=== PATIENT | male | born 1955 | race Caucasian/White ===

== ENCOUNTER 2020-03-23 18:37 | Inpatient (IN) | payer OTHER ==
[~2020-03-23] VITALS: Ht 177.8 cm; Wt 68.0 kg
--- NOTE | 2020-03-23 19:32 | NUR ---
NO IN AND OUT CATH REQUIRED, PT ARRIVED WITH CHRISTI CATH ON.
[2020-03-23 19:34] LABS: BASOPHILS % (AUTO) 0.3 % (0.0-2.0); EOSINOPHILS # (AUTO) 0.1 K/uL (0.0-0.7); EOSINOPHILS % (AUTO) 0.6 % (0.0-7.0); LYMPHOCYTES # (AUTO) 0.5 K/uL (20.0-40.0); LYMPHOCYTES % (AUTO) 4.7 % (20.5-51.5); MEAN CORPUSCULAR HEMOGLOBIN 24.4 uug (23.8-33.4); MEAN CORPUSCULAR HGB CONC 31 g/dL (32.5-36.3); MEAN CORPUSCULAR VOLUME 79.8 fL (73.0-96.2); MONOCYTES # (AUTO) 0.8 K/uL (2.0-10.0); MONOCYTES % (AUTO) 6.7 % (0.0-11.0); NEUTROPHILS % (AUTO) 87.7 % (38.5-71.5); PLATELET COUNT (AUTO) 255 K/uL (152-348); WHITE BLOOD COUNT (AUTO) 11.4 K/uL (3.6-10.2)
[2020-03-23 19:41] LABS: POTASSIUM 4.8 mmol/L (3.5-5.1)
[2020-03-23 19:44] LABS: RED BLOOD CELL COUNT(AUTO) 1.89 MIL/uL (4.06-5.63)
[2020-03-23 19:46] LABS: CREATININE 8.7 mg/dL (0.6-1.3)
[2020-03-23 19:47] LABS: HEMATOCRIT 15.1 % (36.7-47.1); HEMOGLOBIN 4.6 g/dL (12.5-16.3)
[2020-03-23 19:48] LABS: BILIRUBIN,DIRECT 0.2 mg/dL (0.0-0.2); BILIRUBIN,TOTAL 0.3 mg/dL (0.2-1.0); TOTAL PROTEIN, SERUM 7.5 g/dL (6.4-8.2)
[2020-03-23] MEDS ORDERED: MORPHINE SULFATE 4 MG/1 ML DISP.SYRIN IV ONE (20:00)
[2020-03-23] MEDS ORDERED: IV NORMAL SALINE 250 ML BAG IV ONE (20:00)
[2020-03-23 20:01] LABS: *BILIRUBIN,URIN 2+ (NEGATIVE); *BLOOD, URINE 3+ (NEGATIVE); *CLARITY,URINE CLOUDY (CLEAR); *COLOR,URINE Brown (YELLOW); *KETONES,URINE TRACE (NEGATIVE); LEUKOCYTE ESTERASE ,URINE 3+ (NEGATIVE); NITRITE, URINE POSITIVE (NEGATIVE); PH,URINE >=9.0 (5.0-8.0); UGLUCOSE NEGATIVE (NEGATIVE)
--- NOTE | 2020-03-23 20:13 | NUR ---
PATIENT UNABLE TO LIFT HANDS FOR THE CT PROCEDURE.
[2020-03-23] MEDS ORDERED: MORPHINE SULFATE 4 MG/1 ML DISP.SYRIN ONE (20:23)
--- NOTE | 2020-03-23 20:35 | NUR ---
[facility] CALLED, TO CALL BACK.
[2020-03-23] MEDS ORDERED: PANTOPRAZOLE SODIUM IV 40 MG in IV DEXTROSE 5% 100 ML IV ONE (20:45)
[2020-03-23 21:01] LABS: *OCCULT BLOOD STOOL POSITIVE (NEGATIVE)
[2020-03-23] MEDS ORDERED: CEFTRIAXONE /D5W 50ML IVPB **ER PYXIS IV ONE (21:12)
[2020-03-23] MEDS ORDERED: PANTOPRAZOLE SODIUM 40 MG VIAL ONE (21:12)
[2020-03-23] MEDS: CEFTRIAXONE 1 G in IV DEXTROSE 5% 50 ML IV SCH ×2 (21:25→21:30)
--- NOTE | 2020-03-23 22:30 | NUR ---
PT SLEEPING EYES CLOSED, MONITOR SHOWS NSR, PT HAD BUTTOCK PRESSURE SORES CLEANED AND DRESSED , PT POSITIONED FOR COMFORT.
--- NOTE | 2020-03-23 23:16 | NUR ---
1ST UNIT OF [facility] INFUSING, CONSENT SIGNED PER MD, PT UNABLE TO SIGN-CONFUSED.MONITOR SHOWS NSR. PT RESTING, NO DISTRESS NOTED.
[2020-03-23 23:29] LABS: BACTERIA,URINE MANY /HPF (NONE SEEN); RBC,URINE 20-50 /HPF (0-3); SQUAMOUS EPITHELIAL CELL,UR FEW /HPF (NONE SEEN); TRIPLE PHOSPHATE CRYSTAL,UR MODERATE /HPF (NONE SEEN)
[2020-03-23 23:30] LABS: MUCUS,URINE FEW /LPF (0-FEW)
--- NOTE | 2020-03-23 23:41 | NUR ---
1ST UNIT OF [facility] INFUSION COMPLETED, NO ADVERSE REACTIONS NOTED. EMPTY BLOOD BAG TO LAB. LAB TO CALL ME BACK WHEN 2ND UNIT IS READY.
--- NOTE | 2020-03-24 02:04 | NUR ---
2ND UNIT OF [facility] INFUSED, NO ADVERSE REACTIONS NOTED
--- NOTE | 2020-03-24 02:08 | NUR ---
PT SLEEPINNG, EYES CLOSED, MONITOR SHOWS NSR.
--- NOTE | 2020-03-24 04:07 | NUR ---
PHARMACY NOTE, ROCEFIN 1GM IVPB STARTED AT 2124 TO LEFT FOREARM
[2020-03-24] MEDS ORDERED: MORPHINE SULFATE 4 MG/1 ML DISP.SYRIN IV ONE ×2 (05:45→06:15)
[2020-03-24] MEDS ORDERED: MORPHINE SULFATE 4 MG/1 ML DISP.SYRIN ONE ×2 (05:48→06:33)
[2020-03-24 05:52] LABS: LYMPHOCYTES % (MANUAL) 3 % (20-40); MONOCYTES % (MANUAL) 5 % (2-10); NEUTROPHILS % (MANUAL) 92 % (42-75)
--- NOTE | 2020-03-24 07:27 | NUR ---
SBAR REPORT TO JASS RANGEL FROM REGISTRY
--- NOTE | 2020-03-24 08:54 | NUR ---
assumed patient care 64 years old male confused contracted, with GI bleed. non compliant vital stable will continue to monitor.
[2020-03-24] MEDS ORDERED: VANCOMYCIN IV 1,000 MG in IV DEXTROSE 5% 250 ML IV ONE (09:00)
--- NOTE | 2020-03-24 11:04 | NUR ---
release specialist at bedside and talked to daughter Cynthia at [phone]
[2020-03-24] MEDS ORDERED: PIPERACILLIN SODIUM/TAZOBACTAM 3.375 G in IV DEXTROSE 5% 50 ML IV SCH (12:00)
[2020-03-24] MEDS: PIPERACILLIN/TAZO 2.25 G in IV DEXTROSE 5% 50 ML IV SCH ×2 (12:00→20:00)
[2020-03-24] MEDS ORDERED: PANTOPRAZOLE SODIUM 40 MG VIAL IV SCH (12:00)
--- NOTE | 2020-03-24 12:01 | NUR ---
patient very confused, no acute changes will continue to monitor.
[2020-03-24] MEDS ORDERED: Z GUARD REMEDY PASTE 57 GM TUBE TOP PRN (12:15)
[2020-03-24] MEDS ORDERED: ACETAMINOPHEN 325 MG TABLET PO PRN (12:15)
[2020-03-24] MEDS ORDERED: MAGNESIUM HYDROXIDE 30 ML LIQUID UDC PO PRN (12:15)
[2020-03-24] MEDS ORDERED: IV 1/2NS 1000 ML 1,000 ML IV PRN (12:15)
[2020-03-24] MEDS ORDERED: ONDANSETRON 4 MG/2 ML VIAL IV PRN (12:15)
[2020-03-24 12:16] LABS: BASOPHILS % (AUTO) 0.3 % (0.0-2.0); EOSINOPHILS # (AUTO) 0.1 K/uL (0.0-0.7); EOSINOPHILS % (AUTO) 0.8 % (0.0-7.0); LYMPHOCYTES # (AUTO) 0.7 K/uL (20.0-40.0); LYMPHOCYTES % (AUTO) 6.9 % (20.5-51.5); MEAN CORPUSCULAR HEMOGLOBIN 26.5 uug (23.8-33.4); MEAN CORPUSCULAR HGB CONC 32 g/dL (32.5-36.3); MEAN CORPUSCULAR VOLUME 83.6 fL (73.0-96.2); MONOCYTES # (AUTO) 0.9 K/uL (2.0-10.0); MONOCYTES % (AUTO) 8.8 % (0.0-11.0); NEUTROPHILS # (AUTO) 8.1 K/uL (1.8-8.9); NEUTROPHILS % (AUTO) 83.2 % (38.5-71.5); PLATELET COUNT (AUTO) 199 K/uL (152-348); WHITE BLOOD COUNT (AUTO) 9.8 K/uL (3.6-10.2)
[2020-03-24 12:59] LABS: BILIRUBIN,TOTAL 0.2 mg/dL (0.2-1.0); MAGNESIUM 2.9 mg/dL (1.8-2.4); PHOSPHOROUS 4.9 mg/dL (2.5-4.9); POTASSIUM 3.9 mmol/L (3.5-5.1); TOTAL PROTEIN, SERUM 6.8 g/dL (6.4-8.2)
[2020-03-24 13:01] LABS: THYROID STIMULATING HORMONE 2.269 mIU/mL (0.358-3.740)
[2020-03-24 13:09] LABS: CREATININE 8.4 mg/dL (0.6-1.3)
[2020-03-24 13:10] LABS: HEMATOCRIT 20.9 % (36.7-47.1); HEMOGLOBIN 6.6 g/dL (12.5-16.3)
[2020-03-24] MEDS ORDERED: PANTOPRAZOLE SODIUM 40 MG VIAL ONE ×2 (14:46→22:06)
[2020-03-24] MEDS ORDERED: PANTOPRAZOLE SODIUM IV 80 MG in IV DEXTROSE 5% 100 ML IV ONE (15:30)
--- NOTE | 2020-03-24 18:03 | NUR ---
patient on HD right femoral Baljinder inserted today by FREIGHT WEIGHER, patent. vital sstable no acute distress.
--- NOTE | 2020-03-24 18:13 | NUR ---
patient already received 80 mg iv no drip order per Dr Carter.
--- NOTE | 2020-03-24 19:09 | NUR ---
HD completed vital stable, report endorsed to nurse 7pm shift at bedside.
--- NOTE | 2020-03-24 20:00 | NUR ---
PAtient in bed AAOx1. vitals as follow: HR of 108, sbp of 109/56. RR14. Will continue with care plan .
[2020-03-24] MEDS: PANTOPRAZOLE SODIUM 40 MG VIAL IV SCH (21:00)
[2020-03-24] MEDS ORDERED: PIPERACILLIN/TAZOBACTAM/D5W 50 ML ONE (22:05)
[2020-03-24 22:45] LABS: LYMPHOCYTES % (MANUAL) 8 % (20-40); NEUTROPHILS % (MANUAL) 82 % (42-75)
[2020-03-24 22:46] LABS: BAND % (MANUAL) 0 % (0-10); EOSINOPHILS % (MANUAL) 2 % (0-8); MONOCYTES % (MANUAL) 8 % (2-10)
--- NOTE | 2020-03-24 22:47 | NUR ---
Report given to RShabnam. Will patient will be going to room 303 via [facility]. MsZaira Liudmila Otero. notified of pt's admission to room 303. IV line to LFA [id number] patent. lang to gravity and emptied before transfer.
--- NOTE | 2020-03-24 22:51 | NUR ---
Transfer cancelled by Environmental Services Assistant Fito.
--- NOTE | 2020-03-24 22:54 | NUR ---
HR of 108 with sbp of 84/60. Zaira Vaughan called by (R.N. mistake and) orders to start pt. on levophed drip to maintain sbp above 90 received if pt's. sbp remains in the low 80's.
[2020-03-24] MEDS ORDERED: NOREPINEPHRINE BITARTRATE 32 MG in IV NORMAL SALINE 218 ML IV PRN (23:30)
--- NOTE | 2020-03-25 00:38 | NUR ---
hr of 102, and sbp of 96/68 rr 14, and saturation of 96% on 2LNC
--- NOTE | 2020-03-25 03:12 | NUR ---
Report given to Genaro Valencia, who will continue with care plan.
--- NOTE | 2020-03-25 03:15 | NUR ---
Hands off report received from CLAIRE Hancock. Pt sleeping with NAD noted. Pend ALICIA admission.
[2020-03-25] MEDS: PIPERACILLIN/TAZO 2.25 G in IV DEXTROSE 5% 50 ML IV SCH ×3 (04:12→20:14)
[2020-03-25] MEDS ORDERED: MORPHINE SULFATE 2 MG/1 ML DISP.SYRIN ONE ×3 (05:35→20:57)
--- NOTE | 2020-03-25 05:35 | NUR ---
Pt constantly moaning, medicated with prn Morphine as ordered.
[2020-03-25] MEDS: MORPHINE SULFATE 2 MG/1 ML DISP.SYRIN IV PRN ×3 (05:38→20:59)
[2020-03-25 07:54] LABS: BILIRUBIN,TOTAL 0.5 mg/dL (0.2-1.0); CREATININE 5.3 mg/dL (0.6-1.3); MAGNESIUM 2.4 mg/dL (1.8-2.4); POTASSIUM 3.7 mmol/L (3.5-5.1); TOTAL PROTEIN, SERUM 7.2 g/dL (6.4-8.2); VANCOMYCIN,RANDOM 14.6 ug/mL (18.0-26.0)
[2020-03-25 07:57] LABS: BASOPHILS % (AUTO) 0.1 % (0.0-2.0); EOSINOPHILS # (AUTO) 0.1 K/uL (0.0-0.7); EOSINOPHILS % (AUTO) 0.9 % (0.0-7.0); LYMPHOCYTES # (AUTO) 0.6 K/uL (20.0-40.0); LYMPHOCYTES % (AUTO) 6.7 % (20.5-51.5); MEAN CORPUSCULAR HEMOGLOBIN 27.2 uug (23.8-33.4); MEAN CORPUSCULAR HGB CONC 33 g/dL (32.5-36.3); MEAN CORPUSCULAR VOLUME 81.4 fL (73.0-96.2); MONOCYTES # (AUTO) 0.7 K/uL (2.0-10.0); MONOCYTES % (AUTO) 8.8 % (0.0-11.0); NEUTROPHILS % (AUTO) 83.5 % (38.5-71.5); PLATELET COUNT (AUTO) 196 K/uL (152-348); WHITE BLOOD COUNT (AUTO) 8.4 K/uL (3.6-10.2)
--- NOTE | 2020-03-25 08:00 | NUR ---
Pt states he is hungry, per Dietary pt is NPO status. IVF infusing as ordered.
[2020-03-25 08:03] LABS: RED BLOOD CELL COUNT(AUTO) 2.46 MIL/uL (4.06-5.63)
[2020-03-25 08:04] LABS: HEMOGLOBIN 6.7 g/dL (12.5-16.3)
[2020-03-25] MEDS ORDERED: PANTOPRAZOLE SODIUM 40 MG VIAL IV SCH (09:00)
[2020-03-25] MEDS ORDERED: PANTOPRAZOLE SODIUM 40 MG VIAL ONE ×2 (09:33→20:57)
[2020-03-25] MEDS: PANTOPRAZOLE SODIUM 40 MG VIAL IV SCH ×2 (09:47→20:58)
--- NOTE | 2020-03-25 09:55 | NUR ---
Dialysis nurse at bedside.
--- NOTE | 2020-03-25 10:30 | NUR ---
During dialysis pt's BP dropped to 77/56, Levophed drip started at 1 mcg/kg/min.
--- NOTE | 2020-03-25 10:40 | NUR ---
Received telephone call from who stated change pt's diet to clear liquids and NPO post midnight, pt will have EGD tomorrow.
--- NOTE | 2020-03-25 10:45 | NUR ---
Pt's BP 149/67, Levophed lowered to 0.5 mcg/kg/min.
--- NOTE | 2020-03-25 12:00 | NUR ---
Dialysis is complete, pt has maintained SBP >90, Levophed drip d/c'd.
--- NOTE | 2020-03-25 13:00 | NUR ---
Dr. Herndon was notified of H/H results.
--- NOTE | 2020-03-25 13:07 | NUR ---
CLEAR LIQUID TRAY PROVIDED. PT REFUSES TO BE ASSISSTED WITH FOOD.
[2020-03-25 13:15] LABS: EOSINOPHILS % (MANUAL) 1 % (0-8); LYMPHOCYTES % (MANUAL) 5 % (20-40); MONOCYTES % (MANUAL) 6 % (2-10); NEUTROPHILS % (MANUAL) 88 % (42-75)
--- NOTE | 2020-03-25 13:15 | NUR ---
Pt's BP dropped to 70/40, Levophed drip started at 0.5 mcg/kg/min.
[2020-03-25] MEDS ORDERED: EPOETIN ALFA 20,000 UNIT/ML ML SQ ONE (13:45)
--- NOTE | 2020-03-25 13:47 | NUR ---
DR. ZHU, CHILD GUIDANCE COUNSELOR AT BEDSIDE.
[2020-03-25] MEDS ORDERED: LORAZEPAM 2 MG/1 ML VIAL IV ONE (14:45)
[2020-03-25] MEDS ORDERED: LORAZEPAM 2 MG/1 ML VIAL ONE (14:49)
--- NOTE | 2020-03-25 18:00 | NUR ---
Pt resting with NAD noted.
--- NOTE | 2020-03-25 19:15 | NUR ---
RECEIVED BEDSIDE SBAR REPORT FROM NICO RANGEL, PT RECEIBING LEVOPHED DRIP AT 1 MCG/KG/MIN AND .045 % NS AT 50 ML/HR VIA IV PUMP. PT POSITIONED FOR COMFORT, MONITOR SHOWS ZA=721,AL=996/74,PO2 ON 4 L 02 = 96%. PRESENTLY PT AWAITING FOR ALICIA BED.
[2020-03-25] MEDS: VANCOMYCIN IV 500 MG in IV DEXTROSE 5% 100 ML IV PRN (20:59)
--- NOTE | 2020-03-25 22:00 | NUR ---
PT WAS GIVEN BEDBATH, DRESSSING TO BUTTOCK/SACRAL PRESSURE SORES DRESSED, BLACK STOOLS NOTED, BED SHEEET CHANGED,NEW CHUCKS PLACED, PT POSITIONED FOR COMFORT.
--- NOTE | 2020-03-26 01:38 | NUR ---
PHARMACY NOTE; NEW LEVOPHED 250 ML BAG STARTED, THE PREVIOUS ONE ENDED AT 0138.
[2020-03-26] MEDS ORDERED: PIPERACILLIN/TAZOBACTAM/D5W 50 ML ONE ×3 (04:08→21:36)
[2020-03-26] MEDS: PIPERACILLIN/TAZO 2.25 G in IV DEXTROSE 5% 50 ML IV SCH ×3 (04:16→20:00)
[2020-03-26] MEDS ORDERED: MORPHINE SULFATE 2 MG/1 ML DISP.SYRIN ONE ×4 (04:22→22:32)
--- NOTE | 2020-03-26 04:23 | NUR ---
PHARMACY NOTE; 0.45NS L BAG MARIA DOLORES JEAN 422, A NEW 1L 0.45NS BAG INFUSING AT 50 ML/HR VIA IVPUMP
[2020-03-26] MEDS: MORPHINE SULFATE 2 MG/1 ML DISP.SYRIN IV PRN ×4 (04:55→22:29)
[2020-03-26 06:15] LABS: BASOPHILS % (AUTO) 0.2 % (0.0-2.0); EOSINOPHILS % (AUTO) 0.3 % (0.0-7.0); HEMATOCRIT 24.4 % (36.7-47.1); HEMOGLOBIN 7.9 g/dL (12.5-16.3); LYMPHOCYTES # (AUTO) 0.9 K/uL (20.0-40.0); LYMPHOCYTES % (AUTO) 7.4 % (20.5-51.5); MEAN CORPUSCULAR HEMOGLOBIN 26.4 uug (23.8-33.4); MEAN CORPUSCULAR HGB CONC 32 g/dL (32.5-36.3); MEAN CORPUSCULAR VOLUME 81.3 fL (73.0-96.2); MONOCYTES # (AUTO) 1.1 K/uL (2.0-10.0); MONOCYTES % (AUTO) 9.6 % (0.0-11.0); NEUTROPHILS # (AUTO) 9.6 K/uL (1.8-8.9); NEUTROPHILS % (AUTO) 82.5 % (38.5-71.5); PLATELET COUNT (AUTO) 213 K/uL (152-348); WHITE BLOOD COUNT (AUTO) 11.6 K/uL (3.6-10.2)
[2020-03-26 06:28] LABS: BILIRUBIN,TOTAL 0.6 mg/dL (0.2-1.0); MAGNESIUM 2.1 mg/dL (1.8-2.4); PHOSPHOROUS 3.8 mg/dL (2.5-4.9); POTASSIUM 3.1 mmol/L (3.5-5.1); TOTAL PROTEIN, SERUM 7.4 g/dL (6.4-8.2)
--- NOTE | 2020-03-26 07:12 | NUR ---
SBAR REPORT TO VARSHA RANGEL, PRESENTLY PT RECEIVING 0.45%NA AT 50ML/HR AND LEVOPHED AT 0.5MCG/MIN/KG, MONITOR SHOWS NSR, PO2 ON 4 L O2 VIA N/C =97%, PT SLEEPING , EYES CLOSED.
--- NOTE | 2020-03-26 07:41 | NUR ---
recieved pt in bed, on monitor, levophed drip running at 0.5mcg/kg/min.
[2020-03-26] MEDS ORDERED: PANTOPRAZOLE SODIUM 40 MG VIAL ONE ×2 (09:55→21:35)
[2020-03-26] MEDS: PANTOPRAZOLE SODIUM 40 MG VIAL IV SCH ×2 (09:58→21:38)
--- NOTE | 2020-03-26 10:00 | NUR ---
DIALYSIS NURSE AT BEDSIDE.
--- NOTE | 2020-03-26 10:02 | NUR ---
emptied folly cath bag 800 ml turbid color
--- NOTE | 2020-03-26 10:03 | NUR ---
NOTE TO PHARMACY lowered the levophed drip down to 0.2mcg/kg/min. PT ABLE TO MAINTAIN BP WNL.
--- NOTE | 2020-03-26 11:00 | NUR ---
Dr. gomez oked the pt to be admitted to [facility].
--- NOTE | 2020-03-26 11:46 | NUR ---
DR. COPPOLA AT BEDSIDE, AWARE OF K=3.1, NO ORDERS AT THIS TIME PER DR. COPPOLA
--- NOTE | 2020-03-26 15:01 | NUR ---
left a message for Dr. Catalan that the pt is on levophed drip.
--- NOTE | 2020-03-26 16:45 | NUR ---
notr to pharmacy decreased the levophed to 0.1mcg/kg/min, continue to monitor the pt.
--- NOTE | 2020-03-26 19:20 | NUR ---
Received handoff report from CLAIRE Bowser for continuation of care.
[2020-03-26] MEDS ORDERED: CEFTRIAXONE 1 G VIAL ONE (21:01)
[2020-03-26] MEDS: VANCOMYCIN IV 500 MG in IV DEXTROSE 5% 100 ML IV PRN (21:30)
[2020-03-27] MEDS ORDERED: MORPHINE SULFATE 4 MG/1 ML DISP.SYRIN ONE ×2 (03:23→23:01)
[2020-03-27] MEDS: MORPHINE SULFATE 2 MG/1 ML DISP.SYRIN IV PRN ×4 (03:27→19:33)
--- NOTE | 2020-03-27 03:28 | NUR ---
Patient up in bed watching television, reports midback pain, and leg pain. Medication provided.
[2020-03-27] MEDS: PIPERACILLIN/TAZO 2.25 G in IV DEXTROSE 5% 50 ML IV SCH ×3 (04:29→21:18)
--- NOTE | 2020-03-27 04:30 | NUR ---
Reached out to NATHALIA Camarena NETWORKING SPECIALIST. Suggested to Jenna that patient may be able to tolerate being off of Levophed. Blood pressure has been sustained throughout the night without any significant hypotensive events. Jenna states to hold/dc the levophed and see how he tolerates without it.
[2020-03-27] MEDS ORDERED: PIPERACILLIN/TAZOBACTAM/D5W 50 ML ONE ×3 (04:31→21:13)
--- NOTE | 2020-03-27 07:26 | NUR ---
RECIEVED PT IN BED, WATCHING TV, REQUESTING FOOD. PT WAS PLACED NPO.
[2020-03-27] MEDS ORDERED: POTASSIUM CHLORIDE 20 MEQ POWDER PACKET PO ONE (07:30)
[2020-03-27] MEDS ORDERED: POTASSIUM CHLORIDE 20 MEQ POWDER PACKET ONE (07:51)
--- NOTE | 2020-03-27 08:14 | NUR ---
CALLED dR. ORO, HE SAID THAT DR. BOLDEN WILL BE IN CHARGE TODAY. CALLED DR. BOLDEN, HE SAID KEEP THE PT NPO.
--- NOTE | 2020-03-27 08:20 | NUR ---
PT UPSET ABOUT NOT EATING AND SAYS HE DOES NOT CONSENT TO ANYTHING UNTIL HE EATS.
--- NOTE | 2020-03-27 08:31 | NUR ---
CALLED DR. BOLDEN AND LEFT MESSAGE ABOUT THE PT SITUATION
--- NOTE | 2020-03-27 08:35 | NUR ---
DR. BOLDEN CALLED BACK AND SAID IF THE PT DOES NOT WANT THE PROCEDURE DONE, IT WILL BE CANCELLED. CALLED SURGERY AND NOTIFIED THEM
--- NOTE | 2020-03-27 08:50 | NUR ---
RENAL TRAY AT BEDSIDE.
[2020-03-27] MEDS: PANTOPRAZOLE SODIUM 40 MG VIAL IV SCH ×2 (09:16→21:18)
[2020-03-27] MEDS ORDERED: PANTOPRAZOLE SODIUM 40 MG VIAL ONE ×2 (09:20→21:13)
--- NOTE | 2020-03-27 10:44 | NUR ---
DR. AGUILERA AT BEDSIDE.
[2020-03-27] MEDS ORDERED: MORPHINE SULFATE 2 MG/1 ML DISP.SYRIN ONE ×3 (12:49→19:35)
--- NOTE | 2020-03-27 12:57 | NUR ---
wound care nurse at bedside.
--- NOTE | 2020-03-27 13:01 | NUR ---
WOUND CARE CONSULT: PT PRESENTS WITH FECAL INCONTINENCE, BILATERAL LOWER LEG WRAPS (REUSED TO HAVE REMOVED. RECOMMENDATIONS MADE FOR SKIN PROTECTION AND WOUND CARE. DISCUSSED WITH NURSING STAFF. DR MAK NOTIFIED OF CONSULT REQUEST FOR PODIATRY. DR SCHULTZ NOTIFIED OF SURGICAL CONSULT. MD IN AGREEMENT WITH PLAN OF CARE.
[2020-03-27] MEDS: SODIUM HYPOCHLORITE 0.125% (QUARTER STRENGTH) 473 ML BOTTLE TP SCH (14:00)
--- NOTE | 2020-03-27 18:41 | NUR ---
pt remained calm, with occasional co pain in the decub areas which was medicated. perineal care provided x 2, loose dark stool noted. pt had bf at 10 am. had sandwich for lunch.
--- NOTE | 2020-03-27 19:55 | NUR ---
Patient in bed, no acute distress noted. VSS
--- NOTE | 2020-03-27 21:23 | NUR ---
Patient remains in bed, awaiting inpatient admission. No acute distress noted. VSS
--- NOTE | 2020-03-27 22:29 | NUR ---
All patient needs attended and met. No acute distress at this time. VSS. WIll continue to monitor patient. Frequent visual checks ongoing.
[2020-03-27] MEDS ORDERED: MORPHINE SULFATE 4 MG/1 ML DISP.SYRIN IV PRN (23:00)
--- NOTE | 2020-03-27 23:28 | NUR ---
Patient in bed, VSS/ No acute distress noted. Will continue to monitor.
[2020-03-28] MEDS: MORPHINE SULFATE 2 MG/1 ML DISP.SYRIN IV PRN ×6 (00:23→23:26)
[2020-03-28] MEDS ORDERED: MORPHINE SULFATE 2 MG/1 ML DISP.SYRIN ONE ×4 (00:24→16:43)
--- NOTE | 2020-03-28 01:34 | NUR ---
Patient remains in bed, no acute distress noted. VSS
--- NOTE | 2020-03-28 02:27 | NUR ---
Patient remains in bed, no acute distress noted. All patient needs attended and met. VSS
--- NOTE | 2020-03-28 03:00 | NUR ---
Patient requesting additional analgesics at this time. Educated on current PRN schedule and previous administration time. Patient aware of next dose availability, patient agreeable to wait until next PRN analgesic is due. All other patient needs attended and met. Patient provided with water, no acute distress noted. VSS
--- NOTE | 2020-03-28 03:02 | NUR ---
Patient offered to be changed, patient refuses at this time and states he will consider it after his next analgesic dose.
--- NOTE | 2020-03-28 03:46 | NUR ---
Patient in bed, no c/o pain at this time. All patient needs attended and met. Call light is within reach. VSS
[2020-03-28] MEDS: PIPERACILLIN/TAZO 2.25 G in IV DEXTROSE 5% 50 ML IV SCH ×4 (04:21→20:00)
[2020-03-28] MEDS ORDERED: PIPERACILLIN/TAZO 2.25 GM VIAL ONE ×3 (04:22→23:56)
--- NOTE | 2020-03-28 04:40 | NUR ---
Patient repositioned, assisted with pillows. no acute distress noted. All patient needs attended and met. Fluids/food/juan m care offered, refused at this time.
--- NOTE | 2020-03-28 05:36 | NUR ---
Patient in bed, no acute distress noted. no complaint of pain at this time.
--- NOTE | 2020-03-28 06:01 | NUR ---
Patient in bed, no acute distress noted. Tolerating Bipap well. Will continue to monitor patient. Addendum: 03/28/20 at 0601 by CHATO Patient in bed, no acute distress noted. Will continue to monitor patient.
--- NOTE | 2020-03-28 06:24 | NUR ---
Patient diet tray ordered. All patient needs attended and met. patient continues to refuse pericare/changing.
--- NOTE | 2020-03-28 07:05 | NUR ---
Report to Jamal RANGEL
--- NOTE | 2020-03-28 07:05 | NUR ---
Received report from mine shifter. Pt resting with NAD noted.
[2020-03-28] MEDS: SODIUM HYPOCHLORITE 0.125% (QUARTER STRENGTH) 473 ML BOTTLE TP SCH (09:00)
[2020-03-28] MEDS ORDERED: PANTOPRAZOLE SODIUM 40 MG VIAL ONE (09:15)
[2020-03-28] MEDS: PANTOPRAZOLE SODIUM 40 MG VIAL IV SCH ×2 (09:17→20:54)
[2020-03-28] MEDS: MUPIROCIN 2% OINT 22 GM TUBE NS SCH ×2 (09:18→20:52)
--- NOTE | 2020-03-28 09:46 | NUR ---
Dialysis in progress.
[2020-03-28 11:27] LABS: BASOPHILS % (AUTO) 0.2 % (0.0-2.0); EOSINOPHILS # (AUTO) 0.2 K/uL (0.0-0.7); EOSINOPHILS % (AUTO) 3.8 % (0.0-7.0); LYMPHOCYTES # (AUTO) 0.5 K/uL (20.0-40.0); LYMPHOCYTES % (AUTO) 8.2 % (20.5-51.5); MEAN CORPUSCULAR HEMOGLOBIN 26.5 uug (23.8-33.4); MEAN CORPUSCULAR HGB CONC 33 g/dL (32.5-36.3); MEAN CORPUSCULAR VOLUME 81.7 fL (73.0-96.2); MONOCYTES # (AUTO) 0.4 K/uL (2.0-10.0); MONOCYTES % (AUTO) 6.4 % (0.0-11.0); NEUTROPHILS # (AUTO) 5.4 K/uL (1.8-8.9); NEUTROPHILS % (AUTO) 81.4 % (38.5-71.5); PLATELET COUNT (AUTO) 112 K/uL (152-348); WHITE BLOOD COUNT (AUTO) 6.6 K/uL (3.6-10.2)
--- NOTE | 2020-03-28 11:30 | NUR ---
Dialysis completed, NAD noted.
[2020-03-28 11:36] LABS: MAGNESIUM 1.8 mg/dL (1.8-2.4); PHOSPHOROUS 1.2 mg/dL (2.5-4.9); POTASSIUM 3.8 mmol/L (3.5-5.1)
--- NOTE | 2020-03-28 11:42 | NUR ---
Pt moaning and asking for pain medication, medicated with Morphine (as per prn order).
[2020-03-28 11:48] LABS: RED BLOOD CELL COUNT(AUTO) 2.31 MIL/uL (4.06-5.63)
[2020-03-28 11:51] LABS: HEMATOCRIT 18.9 % (36.7-47.1); HEMOGLOBIN 6.1 g/dL (12.5-16.3)
--- NOTE | 2020-03-28 12:30 | NUR ---
Wound care nurse in to pedro pt.
--- NOTE | 2020-03-28 12:39 | NUR ---
WOUND CARE: PT ALLOWED REMOVAL OF COBAN WRAPS TO BILATERAL LOWER LEGS. MULTIPLE AREAS OF DISCOLORATION NOTED, ESPECIALLY TO FEET AND HEELS WITH SOME SEROSANGUINOUS DRAINAGE TO LEFT HEEL. DR MAK NOTIFED. DISCUSSED SKIN PROTECTION WITH NURSING STAFF. HEELS FLOATED.
--- NOTE | 2020-03-28 13:00 | NUR ---
Inge Fernandez in to see pt.
[2020-03-28] MEDS: AMMONIUM LACTATE 12% LOTION 225 GM BOTTLE TP SCH (16:41)
[2020-03-28 17:02] LABS: EOSINOPHILS % (MANUAL) 3 % (0-8); LYMPHOCYTES % (MANUAL) 10 % (20-40); MONOCYTES % (MANUAL) 4 % (2-10); NEUTROPHILS % (MANUAL) 83 % (42-75)
[2020-03-28] MEDS ORDERED: NEUTRA PHOS PACKET PO ONE (17:30)
--- NOTE | 2020-03-28 18:30 | NUR ---
SBAR report given to CLAIRE Pepe via telephone.
--- NOTE | 2020-03-28 18:40 | NUR ---
Pt trans to tele floor, NAD noted.
--- NOTE | 2020-03-28 19:30 | NUR ---
Received pt in bed resting. Denies SOB at this time. Is c/o back pain. Will provide pain meds. No other issues or concerns at this time.
--- NOTE | 2020-03-28 20:00 | NUR ---
IV antibiotics are not in med room. Waiting for nursing drafting supervisor to bring them up
[2020-03-28] MEDS: HYDROCODONE/APAP 5-325MG TABLET PO PRN (20:25)
[2020-03-28 20:32] VITALS: BP 103/63
[2020-03-28] MEDS ORDERED: VANCOMYCIN IV 1,000 MG in IV DEXTROSE 5% 250 ML IV ONE (21:00)
[2020-03-28 22:35] VITALS: BP 108/65
[2020-03-28 22:57] VITALS: BP 105/68
[2020-03-28 23:31] VITALS: BP 106/65
[2020-03-28] MEDS ORDERED: VANCOMYCIN HCL 500 MG VIAL ONE (23:56)
[2020-03-29] VITALS (11 sets, daily range): BP systolic 100–147; BP diastolic 60–95
--- NOTE | 2020-03-29 01:30 | NUR ---
Pt finished 1 unit of RBC transfusion. Denies pain or SOB. No discomfort related to infusion. VS stable. No other issues or concerns at this time.
[2020-03-29] MEDS: HYDROCODONE/APAP 5-325MG TABLET PO PRN ×3 (02:42→14:54)
[2020-03-29] MEDS: MORPHINE SULFATE 2 MG/1 ML DISP.SYRIN IV PRN ×4 (03:45→22:10)
[2020-03-29] MEDS: PIPERACILLIN/TAZO 2.25 G in IV DEXTROSE 5% 50 ML IV SCH ×4 (04:00→22:24)
--- NOTE | 2020-03-29 08:02 | NUR ---
Pt slept intermittently throughout the night. Denies pain or SOB. On RA sating at 98%. Wound care complete. Pictures taken and placed in chart. Pt make comfortable throughout the night. L AC IV infiltrated and was taken out. L FA IV is still intact. No other issues or concerns at this time. Will endorse to day shift.
[2020-03-29 08:06] LABS: HEPATITIS B SURFACE AB Non Reactive (.); HEPATITIS B SURFACE AG Negative (Negative)
[2020-03-29] MEDS: PANTOPRAZOLE SODIUM 40 MG VIAL IV SCH ×2 (09:09→22:24)
[2020-03-29] MEDS: MUPIROCIN 2% OINT 22 GM TUBE NS SCH ×2 (09:10→22:24)
[2020-03-29] MEDS: AMMONIUM LACTATE 12% LOTION 225 GM BOTTLE TP SCH ×2 (09:11→17:37)
[2020-03-29] MEDS: THERAHONEY GEL 1.5 OZ TUBE TOP SCH ×2 (11:41→19:15)
--- NOTE | 2020-03-29 12:29 | NUR ---
WOUND CARE CONSULT: PT PRESENTS WITH RT BUTTOCK STAGE 3 ULCER, SACRAL STAGE 4 ULCER WHICH EXTENDS TO LEFT BUTTOCK, PRESENT ON ADMISSION. PHOTOS TAKEN BY NURSING STAFF. RECOMMENDATIONS MADE FOR SKIN PROTECTION AND WOUND CARE DISCUSSED WITH NURSING STAFF AND POLI LEACH SURGICAL Isak [facility] ORDERED. MD IN AGREEMENT WITH PLAN OF CARE. Addendum: 03/29/20 at 1230 by KATHRYN TAM RN Amended: Links added.
[2020-03-29] MEDS: SODIUM HYPOCHLORITE 0.125% (QUARTER STRENGTH) 473 ML BOTTLE TP SCH ×2 (13:23→19:15)
--- NOTE | 2020-03-29 13:33 | NUR ---
IV infiltrated, PHYSICS AND ASTRONOMY PROFESSOR ordered midline, midline nurse will be here at 1600
[2020-03-29 13:44] LABS: CREATININE 3.1 mg/dL (0.6-1.3); MAGNESIUM 1.9 mg/dL (1.8-2.4); PHOSPHOROUS 2.1 mg/dL (2.5-4.9); POTASSIUM 3.6 mmol/L (3.5-5.1)
[2020-03-29 13:58] LABS: HEMATOCRIT 21.7 % (36.7-47.1); LYMPHOCYTES # (AUTO) 0.9 K/uL (20.0-40.0); MONOCYTES # (AUTO) 0.7 K/uL (2.0-10.0)
[2020-03-29 14:00] LABS: BASOPHILS % (AUTO) 0.6 % (0.0-2.0); EOSINOPHILS # (AUTO) 0.2 K/uL (0.0-0.7); EOSINOPHILS % (AUTO) 2.7 % (0.0-7.0); LYMPHOCYTES % (AUTO) 10.4 % (20.5-51.5); MEAN CORPUSCULAR HEMOGLOBIN 25.7 uug (23.8-33.4); MEAN CORPUSCULAR HGB CONC 31 g/dL (32.5-36.3); MEAN CORPUSCULAR VOLUME 83.3 fL (73.0-96.2); MONOCYTES % (AUTO) 8.4 % (0.0-11.0); NEUTROPHILS # (AUTO) 6.7 K/uL (1.8-8.9); NEUTROPHILS % (AUTO) 77.9 % (38.5-71.5); PLATELET COUNT (AUTO) 151 K/uL (152-348); RED BLOOD CELL COUNT(AUTO) 2.61 MIL/uL (4.06-5.63); WHITE BLOOD COUNT (AUTO) 8.6 K/uL (3.6-10.2)
[2020-03-29 14:08] LABS: HEMOGLOBIN 6.7 g/dL (12.5-16.3)
[2020-03-29] MEDS ORDERED: GOLYTELY 4000 ML BOTTLE PO ONE (18:00)
[2020-03-29] MEDS ORDERED: LISI-603 PO (18:12)
[2020-03-29] MEDS ORDERED: CARI350T PO (18:12)
[2020-03-29] MEDS ORDERED: CEFEPIME HCL 1 G in IV DEXTROSE 5% 50 ML IV SCH (22:00)
[2020-03-29 23:27] LABS: EOSINOPHILS % (MANUAL) 2 % (0-8); LYMPHOCYTES % (MANUAL) 5 % (20-40); METAMYELOCYTES % 1 % (0-1); MONOCYTES % (MANUAL) 9 % (2-10); NEUTROPHILS % (MANUAL) 83 % (42-75)
[2020-03-30] VITALS: BP 143/80
--- NOTE | 2020-03-30 00:45 | NUR ---
Pt refused to complete entire dose of Golytely. Stating "I drank all I can, I don't even want to be here. I just want to get this test and leave". Explained benefits of completing the drink as well as the risks of not completing entire dose. Will endorse.
[2020-03-30 04:12] VITALS: BP 133/82
[2020-03-30] MEDS: MORPHINE SULFATE 2 MG/1 ML DISP.SYRIN IV PRN ×3 (04:23→14:55)
[2020-03-30] MEDS: PIPERACILLIN/TAZO 2.25 G in IV DEXTROSE 5% 50 ML IV SCH ×3 (04:23→20:00)
[2020-03-30 07:21] LABS: BASOPHILS % (AUTO) 0.4 % (0.0-2.0); EOSINOPHILS # (AUTO) 0.2 K/uL (0.0-0.7); EOSINOPHILS % (AUTO) 2.5 % (0.0-7.0); HEMATOCRIT 23.8 % (36.7-47.1); HEMOGLOBIN 7.9 g/dL (12.5-16.3); LYMPHOCYTES # (AUTO) 0.8 K/uL (20.0-40.0); LYMPHOCYTES % (AUTO) 9.4 % (20.5-51.5); MEAN CORPUSCULAR HEMOGLOBIN 27.5 uug (23.8-33.4); MEAN CORPUSCULAR HGB CONC 33 g/dL (32.5-36.3); MEAN CORPUSCULAR VOLUME 82.7 fL (73.0-96.2); MONOCYTES # (AUTO) 0.4 K/uL (2.0-10.0); MONOCYTES % (AUTO) 5.3 % (0.0-11.0); NEUTROPHILS # (AUTO) 6.7 K/uL (1.8-8.9); NEUTROPHILS % (AUTO) 82.4 % (38.5-71.5); PLATELET COUNT (AUTO) 145 K/uL (152-348); RED BLOOD CELL COUNT(AUTO) 2.88 MIL/uL (4.06-5.63); WHITE BLOOD COUNT (AUTO) 8.2 K/uL (3.6-10.2)
[2020-03-30 07:36] LABS: CREATININE 3.2 mg/dL (0.6-1.3); MAGNESIUM 1.8 mg/dL (1.8-2.4); PHOSPHOROUS 2.6 mg/dL (2.5-4.9); POTASSIUM 3.8 mmol/L (3.5-5.1); VANCOMYCIN,RANDOM 16.3 ug/mL (18.0-26.0)
[2020-03-30] MEDS: PANTOPRAZOLE SODIUM 40 MG VIAL IV SCH (08:54)
[2020-03-30] MEDS: AMMONIUM LACTATE 12% LOTION 225 GM BOTTLE TP SCH ×2 (09:00→17:08)
[2020-03-30] MEDS: THERAHONEY GEL 1.5 OZ TUBE TOP SCH ×2 (09:00)
[2020-03-30] MEDS: MUPIROCIN 2% OINT 22 GM TUBE NS SCH (09:00)
[2020-03-30] MEDS: SODIUM HYPOCHLORITE 0.125% (QUARTER STRENGTH) 473 ML BOTTLE TP SCH ×2 (09:00)
--- NOTE | 2020-03-30 09:00 | NUR ---
ON DIALYSIS. UNABLE TO CHANGE DRESSINGS.
[2020-03-30] MEDS ORDERED: MORPHINE SULFATE 2 MG/1 ML DISP.SYRIN IV ONE (09:45)
--- NOTE | 2020-03-30 11:15 | NUR ---
EN ROUTE TO GI LAB. UNABLE TO CHANGE DRESSINGS.
[2020-03-30 11:20] VITALS: BP 158/61
--- NOTE | 2020-03-30 13:30 | NUR ---
RECEIVED FROM RR. AWAKE, ALERT & ORIENTED. NO C/O DISCOMFORT.
[2020-03-30 15:24] VITALS: BP 102/72
[2020-03-30] MEDS ORDERED: VANCOMYCIN IV 500 MG in IV DEXTROSE 5% 100 ML IV ONE (16:00)
[2020-03-30 20:00] VITALS: BP 120/61
--- NOTE | 2020-03-30 20:00 | NUR ---
PT IN BED, IN GOOD SPIRITS, AWAKE AND ALERT. NO ACUTE DISTRESS NOTED.ON TELE SINUS TACH 115-117
[2020-03-30 20:15] VITALS: BP 120/61
--- NOTE | 2020-03-30 22:00 | NUR ---
COMPLAINED OF GEN PAIN ,FACIAL GRIMACING NOTED, GETTING IRRITABLE AND RUDE, MEDICATED W/ MORPHINE 2 MG ORDERED.NEEDS ATTENDED TO.FEMORA ACCESS FOR DIALYSIS INTACT .MID LINE IN PLACE ON RT. UPPER ARM.REPOSITIONED FOR COMFORT.SLEPT INTERMITTENTLY.
[2020-03-31] VITALS: BP 129/70
[2020-03-31] MEDS: PANTOPRAZOLE SODIUM 40 MG VIAL IV SCH ×3 (01:28→20:43)
[2020-03-31] MEDS: PIPERACILLIN/TAZO 2.25 G in IV DEXTROSE 5% 50 ML IV SCH ×4 (01:28→23:14)
[2020-03-31 04:00] VITALS: BP 129/70
[2020-03-31 04:15] VITALS: BP 125/76
[2020-03-31] MEDS: MUPIROCIN 2% OINT 22 GM TUBE NS SCH ×3 (04:20→20:13)
[2020-03-31] MEDS: MORPHINE SULFATE 2 MG/1 ML DISP.SYRIN IV PRN ×4 (04:22→23:14)
[2020-03-31] MEDS: THERAHONEY GEL 1.5 OZ TUBE TOP SCH ×2 (08:19)
[2020-03-31] MEDS: AMMONIUM LACTATE 12% LOTION 225 GM BOTTLE TP SCH ×2 (08:20→17:30)
[2020-03-31] MEDS: SODIUM HYPOCHLORITE 0.125% (QUARTER STRENGTH) 473 ML BOTTLE TP SCH ×2 (08:21)
[2020-03-31 11:55] VITALS: BP 124/79
--- NOTE | 2020-03-31 14:00 | NUR ---
Seen by Inge Johnson NP RE: Hgb levels. New order for CBC. Will await results
--- NOTE | 2020-03-31 14:32 | NUR ---
Lab called for critical results. Hgb 7.2. Notified Inge Johnson NP at [phone]. No plan for D/C today
[2020-03-31 15:16] LABS: BASOPHILS # (AUTO) 0.1 K/uL (0.0-8.0); BASOPHILS % (AUTO) 0.6 % (0.0-2.0); EOSINOPHILS # (AUTO) 0.2 K/uL (0.0-0.7); EOSINOPHILS % (AUTO) 2.2 % (0.0-7.0); HEMATOCRIT 23.1 % (36.7-47.1); LYMPHOCYTES # (AUTO) 0.3 K/uL (20.0-40.0); LYMPHOCYTES % (AUTO) 3.6 % (20.5-51.5); MEAN CORPUSCULAR HEMOGLOBIN 26.3 uug (23.8-33.4); MEAN CORPUSCULAR HGB CONC 31 g/dL (32.5-36.3); MEAN CORPUSCULAR VOLUME 83.6 fL (73.0-96.2); MONOCYTES # (AUTO) 0.5 K/uL (2.0-10.0); MONOCYTES % (AUTO) 5.8 % (0.0-11.0); NEUTROPHILS # (AUTO) 7.6 K/uL (1.8-8.9); NEUTROPHILS % (AUTO) 87.8 % (38.5-71.5); PLATELET COUNT (AUTO) 144 K/uL (152-348); RED BLOOD CELL COUNT(AUTO) 2.76 MIL/uL (4.06-5.63); WHITE BLOOD COUNT (AUTO) 8.7 K/uL (3.6-10.2)
[2020-03-31 15:22] LABS: HEMOGLOBIN 7.2 g/dL (12.5-16.3)
[2020-03-31 15:33] LABS: BILIRUBIN,TOTAL 0.3 mg/dL (0.2-1.0); CREATININE 2.7 mg/dL (0.6-1.3); MAGNESIUM 1.9 mg/dL (1.8-2.4); PHOSPHOROUS 2.5 mg/dL (2.5-4.9); TOTAL PROTEIN, SERUM 5.8 g/dL (6.4-8.2); VANCOMYCIN,RANDOM 15.6 ug/mL (18.0-26.0)
[2020-03-31 15:38] LABS: POTASSIUM 4.1 mmol/L (3.5-5.1)
[2020-03-31 16:34] VITALS: BP 111/68
[2020-03-31 20:00] VITALS: BP 126/68
[2020-04-01] VITALS: BP 131/75
[2020-04-01 04:00] VITALS: BP 148/77
[2020-04-01] MEDS: MORPHINE SULFATE 2 MG/1 ML DISP.SYRIN IV PRN ×4 (04:47→21:22)
[2020-04-01] MEDS: PIPERACILLIN/TAZO 2.25 G in IV DEXTROSE 5% 50 ML IV SCH ×3 (05:55→20:32)
--- NOTE | 2020-04-01 06:45 | NUR ---
Patient going to be handed off to AM nurse. VSS. Stable condition. Continued plan of care. Safety measures in place. Will endorse to AM nurse.
--- NOTE | 2020-04-01 08:00 | NUR ---
Pt alert and oriented able to make his needs known. Right midline intact. Call light is within reach.
[2020-04-01] MEDS: THERAHONEY GEL 1.5 OZ TUBE TOP SCH ×2 (09:12→09:14)
[2020-04-01] MEDS: SODIUM HYPOCHLORITE 0.125% (QUARTER STRENGTH) 473 ML BOTTLE TP SCH ×2 (09:13→09:14)
[2020-04-01] MEDS: MUPIROCIN 2% OINT 22 GM TUBE NS SCH ×2 (09:14→20:32)
[2020-04-01] MEDS: AMMONIUM LACTATE 12% LOTION 225 GM BOTTLE TP SCH ×2 (09:14→16:19)
[2020-04-01] MEDS: PANTOPRAZOLE SODIUM 40 MG VIAL IV SCH ×2 (09:20→20:31)
[2020-04-01 10:37] LABS: BASOPHILS # (AUTO) 0.1 K/uL (0.0-8.0); BASOPHILS % (AUTO) 0.6 % (0.0-2.0); EOSINOPHILS # (AUTO) 0.3 K/uL (0.0-0.7); EOSINOPHILS % (AUTO) 2.9 % (0.0-7.0); HEMATOCRIT 23.9 % (36.7-47.1); HEMOGLOBIN 7.7 g/dL (12.5-16.3); LYMPHOCYTES % (AUTO) 10.8 % (20.5-51.5); MEAN CORPUSCULAR HEMOGLOBIN 26.9 uug (23.8-33.4); MEAN CORPUSCULAR HGB CONC 32 g/dL (32.5-36.3); MEAN CORPUSCULAR VOLUME 83.1 fL (73.0-96.2); MONOCYTES # (AUTO) 0.5 K/uL (2.0-10.0); MONOCYTES % (AUTO) 5.6 % (0.0-11.0); NEUTROPHILS # (AUTO) 7.1 K/uL (1.8-8.9); NEUTROPHILS % (AUTO) 80.1 % (38.5-71.5); PLATELET COUNT (AUTO) 159 K/uL (152-348); RED BLOOD CELL COUNT(AUTO) 2.87 MIL/uL (4.06-5.63); WHITE BLOOD COUNT (AUTO) 8.9 K/uL (3.6-10.2)
[2020-04-01 10:49] LABS: CREATININE 2.9 mg/dL (0.6-1.3); MAGNESIUM 1.9 mg/dL (1.8-2.4); PHOSPHOROUS 2.9 mg/dL (2.5-4.9); POTASSIUM 4.3 mmol/L (3.5-5.1)
[2020-04-01 11:58] VITALS: BP 120/72
[2020-04-01 15:40] VITALS: BP 127/80
[2020-04-01 20:00] VITALS: BP 133/73
[2020-04-02] VITALS: BP 146/73
[2020-04-02 04:00] VITALS: BP 132/62
[2020-04-02] MEDS: PIPERACILLIN/TAZO 2.25 G in IV DEXTROSE 5% 50 ML IV SCH ×3 (06:34→22:43)
--- NOTE | 2020-04-02 07:30 | NUR ---
Pt is in no acute distress. Pt pain management with morphine effective. Call light is within reach.
[2020-04-02 08:26] LABS: CREATININE 3.3 mg/dL (0.6-1.3); MAGNESIUM 1.7 mg/dL (1.8-2.4); PHOSPHOROUS 3.1 mg/dL (2.5-4.9); POTASSIUM 5.2 mmol/L (3.5-5.1)
[2020-04-02] MEDS ORDERED: SODIUM POLYSTYRENE SULFONATE 15 G/60 ML LIQUID UDC PO ONE (08:45)
[2020-04-02 09:07] LABS: BASOPHILS % (AUTO) 0.5 % (0.0-2.0); EOSINOPHILS # (AUTO) 0.2 K/uL (0.0-0.7); EOSINOPHILS % (AUTO) 2.5 % (0.0-7.0); HEMATOCRIT 22.3 % (36.7-47.1); LYMPHOCYTES # (AUTO) 0.7 K/uL (20.0-40.0); LYMPHOCYTES % (AUTO) 8.7 % (20.5-51.5); MEAN CORPUSCULAR HEMOGLOBIN 27.1 uug (23.8-33.4); MEAN CORPUSCULAR HGB CONC 32 g/dL (32.5-36.3); MEAN CORPUSCULAR VOLUME 83.8 fL (73.0-96.2); MONOCYTES # (AUTO) 0.5 K/uL (2.0-10.0); MONOCYTES % (AUTO) 6.3 % (0.0-11.0); NEUTROPHILS # (AUTO) 6.9 K/uL (1.8-8.9); PLATELET COUNT (AUTO) 174 K/uL (152-348); RED BLOOD CELL COUNT(AUTO) 2.66 MIL/uL (4.06-5.63); WHITE BLOOD COUNT (AUTO) 8.4 K/uL (3.6-10.2)
[2020-04-02] MEDS ORDERED: MAGNESIUM OXIDE 400 MG TABLET PO ONE (10:30)
[2020-04-02] MEDS: MUPIROCIN 2% OINT 22 GM TUBE NS SCH ×2 (10:52→21:00)
[2020-04-02] MEDS: PANTOPRAZOLE SODIUM 40 MG VIAL IV SCH ×2 (10:52→22:42)
[2020-04-02] MEDS: THERAHONEY GEL 1.5 OZ TUBE TOP SCH ×2 (10:53)
[2020-04-02] MEDS: AMMONIUM LACTATE 12% LOTION 225 GM BOTTLE TP SCH ×2 (10:53→17:49)
[2020-04-02] MEDS: SODIUM HYPOCHLORITE 0.125% (QUARTER STRENGTH) 473 ML BOTTLE TP SCH ×2 (10:54)
[2020-04-02] MEDS: MORPHINE SULFATE 2 MG/1 ML DISP.SYRIN IV PRN ×2 (10:55→17:53)
[2020-04-02 11:04] VITALS: BP 155/83
[2020-04-02 12:40] LABS: HEMOGLOBIN 7.2 g/dL (12.5-16.3)
[2020-04-02 15:34] VITALS: BP 153/81
[2020-04-02 20:00] VITALS: BP 125/80
--- NOTE | 2020-04-02 22:40 | NUR ---
complained of gen pain.medicated w/ morphine sulfate 2 mg. as ordered, relief afforded,rested fairly well .
[2020-04-03] VITALS (7 sets, daily range): BP systolic 95–143; BP diastolic 45–93
[2020-04-03] MEDS: MORPHINE SULFATE 2 MG/1 ML DISP.SYRIN IV PRN ×4 (03:51→21:57)
[2020-04-03] MEDS: PIPERACILLIN/TAZO 2.25 G in IV DEXTROSE 5% 50 ML IV SCH ×3 (05:35→21:50)
--- NOTE | 2020-04-03 07:05 | NUR ---
incontinent of large amt of soft brown bm, cleaned and kept dry, dressing changed to sacral decub and buttocks. slept on and off.
[2020-04-03 07:17] LABS: CREATININE 3.4 mg/dL (0.6-1.3); MAGNESIUM 1.8 mg/dL (1.8-2.4); PHOSPHOROUS 3.1 mg/dL (2.5-4.9); POTASSIUM 5.2 mmol/L (3.5-5.1)
[2020-04-03 07:18] LABS: HEMATOCRIT 22.1 % (36.7-47.1); MONOCYTES # (AUTO) 0.5 K/uL (2.0-10.0)
[2020-04-03 07:20] LABS: BASOPHILS % (AUTO) 0.2 % (0.0-2.0); EOSINOPHILS # (AUTO) 0.2 K/uL (0.0-0.7); EOSINOPHILS % (AUTO) 1.4 % (0.0-7.0); LYMPHOCYTES # (AUTO) 0.6 K/uL (20.0-40.0); LYMPHOCYTES % (AUTO) 5.7 % (20.5-51.5); MEAN CORPUSCULAR HEMOGLOBIN 26.8 uug (23.8-33.4); MEAN CORPUSCULAR HGB CONC 32 g/dL (32.5-36.3); MEAN CORPUSCULAR VOLUME 84.6 fL (73.0-96.2); MONOCYTES % (AUTO) 4.7 % (0.0-11.0); NEUTROPHILS # (AUTO) 10.1 K/uL (1.8-8.9); PLATELET COUNT (AUTO) 211 K/uL (152-348); RED BLOOD CELL COUNT(AUTO) 2.61 MIL/uL (4.06-5.63); WHITE BLOOD COUNT (AUTO) 11.5 K/uL (3.6-10.2)
[2020-04-03] MEDS ORDERED: PROPOFOL 200 MG/20 ML BOTTLE IV ONE ×2 (07:41→17:08)
[2020-04-03] MEDS ORDERED: EPHEDRINE SULFATE 50 MG/ML AMPUL MC ONE (07:42)
[2020-04-03] MEDS ORDERED: LIDOCAINE-MPF 2% 5 ML VIAL MC ONE (07:42)
[2020-04-03] MEDS ORDERED: ETOMIDATE 20 MG/10 ML VIAL MC ONE (07:42)
[2020-04-03] MEDS: PANTOPRAZOLE SODIUM 40 MG VIAL IV SCH ×2 (08:37→21:46)
[2020-04-03] MEDS: THERAHONEY GEL 1.5 OZ TUBE TOP SCH ×2 (08:38)
[2020-04-03] MEDS: MUPIROCIN 2% OINT 22 GM TUBE NS SCH ×2 (08:38→21:51)
[2020-04-03] MEDS: AMMONIUM LACTATE 12% LOTION 225 GM BOTTLE TP SCH ×2 (08:39→18:19)
[2020-04-03] MEDS: SODIUM HYPOCHLORITE 0.125% (QUARTER STRENGTH) 473 ML BOTTLE TP SCH ×2 (08:39)
[2020-04-03] MEDS ORDERED: ONDANSETRON 4 MG/2 ML VIAL ONE (13:50)
[2020-04-03] MEDS ORDERED: LIDOCAINE-MPF 2% 5 ML VIAL ONE (13:50)
[2020-04-03] MEDS ORDERED: PROPOFOL 200 MG/20 ML BOTTLE ONE (13:50)
[2020-04-03] MEDS ORDERED: HEPARIN SODIUM,PORCINE 1,000 UNITS/ML VIAL ONE (15:37)
[2020-04-03] MEDS ORDERED: HEPARIN/NS 500 ML ONE (15:37)
[2020-04-03] MEDS ORDERED: LIDOCAINE HCL-MPF 1% 5 ML VIAL ONE (15:37)
[2020-04-03] MEDS ORDERED: POLYMYXIN B SULFATE 500,000 UNITS, BACITRACIN 50,000 UNITS, NORMAL SALINE 20 ML MC ONE ×3 (15:45)
--- NOTE | 2020-04-03 16:00 | NUR ---
PT left for HD perma cath insertion by Dr. Sen. Consent received by PT. Report given to OR nurse. PT in bed, awake AO X 4. Safety measures provided.
[2020-04-03] MEDS ORDERED: FENTANYL CITRATE 100 MCG/2 ML AMPUL ONE (16:29)
[2020-04-03] MEDS ORDERED: LIDOCAINE HCL 1% 20 ML VIAL ONE (16:55)
[2020-04-03] MEDS ORDERED: IV NORMAL SALINE 1000 ML BAG IV ONE (17:08)
[2020-04-03] MEDS ORDERED: CEFAZOLIN 1 G VIAL IM ONE (17:08)
[2020-04-03] MEDS ORDERED: LIDOCAINE-MPF 2% 5 ML VIAL IJ ONE (17:08)
--- NOTE | 2020-04-03 18:00 | NUR ---
PT came back from surgery. Right perma cath inserted. No swelling or bleeding noted at site. Received report from recovery nurse. Continue orders. PT in bed with safety measures, call light within reach, bed low and lock.
--- NOTE | 2020-04-03 20:00 | NUR ---
IN BED RESTING FAIRLY WELL,NO COMPLAINTS MADE, PERMA CATH INSERTED EARLIER ON RT. CHEST, NO BLEEDING NOTED,MIDLINE ON RT, UPPER ARM PATENT,RT FEMORAL DIALYSIS ACCESS IN PLACE.REPOSITIONED FOR COMFOERT. KEPT WARM AND DRY. SLEPT AT SHORT INTERVALS.DUE MEDS GIVEN.ON TELE SINUS 91
[2020-04-04 00:36] VITALS: BP 156/84
[2020-04-04 04:50] VITALS: BP 149/97
[2020-04-04] MEDS: PIPERACILLIN/TAZO 2.25 G in IV DEXTROSE 5% 50 ML IV SCH ×3 (05:40→21:40)
--- NOTE | 2020-04-04 07:30 | NUR ---
Patient is resting in bed. Safety precautions in place.
[2020-04-04] MEDS: SODIUM HYPOCHLORITE 0.125% (QUARTER STRENGTH) 473 ML BOTTLE TP SCH ×2 (09:00)
[2020-04-04] MEDS: THERAHONEY GEL 1.5 OZ TUBE TOP SCH ×2 (09:00→09:03)
[2020-04-04] MEDS: PANTOPRAZOLE SODIUM 40 MG VIAL IV SCH ×2 (09:02→21:38)
[2020-04-04] MEDS: AMMONIUM LACTATE 12% LOTION 225 GM BOTTLE TP SCH ×2 (09:03→16:43)
[2020-04-04] MEDS: MORPHINE SULFATE 2 MG/1 ML DISP.SYRIN IV PRN ×2 (09:05→15:46)
--- NOTE | 2020-04-04 10:00 | NUR ---
Patient refused wound care treatment at this time. Patient was angry and threatened AMA.
[2020-04-04 11:10] LABS: BASOPHILS % (AUTO) 0.4 % (0.0-2.0); EOSINOPHILS # (AUTO) 0.2 K/uL (0.0-0.7); HEMATOCRIT 21.1 % (36.7-47.1); LYMPHOCYTES # (AUTO) 0.7 K/uL (20.0-40.0); LYMPHOCYTES % (AUTO) 9.2 % (20.5-51.5); MEAN CORPUSCULAR HGB CONC 32 g/dL (32.5-36.3); MEAN CORPUSCULAR VOLUME 83.7 fL (73.0-96.2); MONOCYTES # (AUTO) 0.5 K/uL (2.0-10.0); MONOCYTES % (AUTO) 6.7 % (0.0-11.0); NEUTROPHILS # (AUTO) 6.3 K/uL (1.8-8.9); NEUTROPHILS % (AUTO) 81.7 % (38.5-71.5); PLATELET COUNT (AUTO) 232 K/uL (152-348); RED BLOOD CELL COUNT(AUTO) 2.53 MIL/uL (4.06-5.63); WHITE BLOOD COUNT (AUTO) 7.7 K/uL (3.6-10.2)
[2020-04-04 11:27] LABS: CREATININE 3.2 mg/dL (0.6-1.3); MAGNESIUM 1.6 mg/dL (1.8-2.4); PHOSPHOROUS 3.3 mg/dL (2.5-4.9); POTASSIUM 5.2 mmol/L (3.5-5.1)
[2020-04-04 11:38] LABS: HEMOGLOBIN 6.8 g/dL (12.5-16.3)
[2020-04-04 12:05] VITALS: BP 143/82
[2020-04-04 12:36] LABS: HEMATOCRIT 21.5 % (36.7-47.1); HEMOGLOBIN 6.7 g/dL (12.5-16.3)
[2020-04-04] MEDS ORDERED: VANCOMYCIN IV 1,000 MG in IV DEXTROSE 5% 250 ML IV ONE (14:00)
[2020-04-04] MEDS ORDERED: MAGNESIUM OXIDE 400 MG TABLET PO ONE (14:30)
[2020-04-04 16:15] LABS: LYMPHOCYTES % (MANUAL) 12 % (20-40); NEUTROPHILS % (MANUAL) 81 % (42-75)
[2020-04-04 16:16] LABS: EOSINOPHILS % (MANUAL) 2 % (0-8); MONOCYTES % (MANUAL) 5 % (2-10)
[2020-04-04 16:29] VITALS: BP 152/85
--- NOTE | 2020-04-04 18:30 | NUR ---
Patient is resting in bed. No adverse events throughout shift. Pain medication provided throughout shift with relief. Addressed patient's concerns. Endorsed to casino shift manager nurse about order to transfuse blood. Safety precautions in place.
[2020-04-04 20:00] VITALS: BP 152/78
--- NOTE | 2020-04-04 22:10 | NUR ---
Patient asleep with O2 at @ 2LPM via [place] saturating at 99 %.Perma cath in place on right upper chest. Dressing intact. Midline on right upper arm 20g in place .Administered Iv ATB as ordered .No a/r noted.Continue safety measures.Will continue to monitor.
[2020-04-05 00:39] VITALS: BP 165/76
--- NOTE | 2020-04-05 02:00 | NUR ---
Patient awake c/o pain back .Medicated with Morphine IVP. Wound care provided and photos taken .F/c in place draining well .Called lab to f/u [facility].Type and screen was done yesterday.No RBC order wasn't placed yesterday per lab.Will continue to follow up.
[2020-04-05] MEDS: MORPHINE SULFATE 2 MG/1 ML DISP.SYRIN IV PRN ×3 (02:22→14:36)
[2020-04-05 04:00] VITALS: BP 147/78
[2020-04-05] MEDS: PIPERACILLIN/TAZO 2.25 G in IV DEXTROSE 5% 50 ML IV SCH ×2 (05:07→13:27)
[2020-04-05 08:30] LABS: CREATININE 3.2 mg/dL (0.6-1.3); MAGNESIUM 1.5 mg/dL (1.8-2.4); PHOSPHOROUS 3.6 mg/dL (2.5-4.9); POTASSIUM 5.3 mmol/L (3.5-5.1)
--- NOTE | 2020-04-05 09:00 | NUR ---
PATIENT IS AWAKE ALERT AND ORIENTED DENIES PAIN OR DISCOMFORTS AT THIS TIME ON O2 WITH NO SHORTNESS OF BREATH AT THIS TIME TELE IS SR WITH NO ECTOPY ASSISTED WITH REPOSITIONING Q2H CALL LIGHTS AND HIS PERSONAL BELONGINGS ARE WITHIN EASY REACH MADE COMFORTABLE WILL CONTINUE TO OBSERVE.
[2020-04-05] MEDS: PANTOPRAZOLE SODIUM 40 MG VIAL IV SCH (09:10)
[2020-04-05] MEDS: THERAHONEY GEL 1.5 OZ TUBE TOP SCH ×2 (09:11→09:12)
[2020-04-05] MEDS: SODIUM HYPOCHLORITE 0.125% (QUARTER STRENGTH) 473 ML BOTTLE TP SCH ×2 (09:12→09:15)
[2020-04-05] MEDS: AMMONIUM LACTATE 12% LOTION 225 GM BOTTLE TP SCH (09:15)
[2020-04-05 09:21] LABS: BASOPHILS # (AUTO) 0.1 K/uL (0.0-8.0); BASOPHILS % (AUTO) 0.8 % (0.0-2.0); EOSINOPHILS # (AUTO) 0.2 K/uL (0.0-0.7); EOSINOPHILS % (AUTO) 2.6 % (0.0-7.0); LYMPHOCYTES # (AUTO) 0.6 K/uL (20.0-40.0); LYMPHOCYTES % (AUTO) 8.4 % (20.5-51.5); MEAN CORPUSCULAR HEMOGLOBIN 26.7 uug (23.8-33.4); MEAN CORPUSCULAR HGB CONC 32 g/dL (32.5-36.3); MEAN CORPUSCULAR VOLUME 82.7 fL (73.0-96.2); MONOCYTES # (AUTO) 0.5 K/uL (2.0-10.0); MONOCYTES % (AUTO) 6.7 % (0.0-11.0); NEUTROPHILS # (AUTO) 5.6 K/uL (1.8-8.9); NEUTROPHILS % (AUTO) 81.5 % (38.5-71.5); PLATELET COUNT (AUTO) 236 K/uL (152-348); WHITE BLOOD COUNT (AUTO) 6.9 K/uL (3.6-10.2)
[2020-04-05 10:35] LABS: HEMOGLOBIN 6.5 g/dL (12.5-16.3); RED BLOOD CELL COUNT(AUTO) 2.43 MIL/uL (4.06-5.63)
[2020-04-05 10:36] LABS: HEMATOCRIT 20.1 % (36.7-47.1)
--- NOTE | 2020-04-05 10:36 | NUR ---
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
[2020-04-05] MEDS ORDERED: MAGNESIUM SULFATE/D5W 100 ML IV SCH (11:30)
--- NOTE | 2020-04-05 11:32 | NUR ---
D/C PLANNING TO [facility] PER LUIS ALFREDO PATIENT IS SCHEDULED FOR BLOOD TRANSFUSSION SPOKE WITH JULIO CESAR CHEMICAL LIBRARIAN STATED WILL ARRANGE WATCH LEADER ABOUT 1800.
[2020-04-05] MEDS ORDERED: PIPE2.257 IV (11:45)
[2020-04-05] MEDS ORDERED: MAGNESIUM OXIDE 400 MG TABLET PO ONE (11:45)
[2020-04-05] MEDS ORDERED: PANT40TA2 PO (11:45)
[2020-04-05 12:00] VITALS: BP 147/78
--- NOTE | 2020-04-05 14:14 | NUR ---
PICKED UP ONE UNIT OF BLOOD FROM THE BLOOD BANK BUT IS UNABLE TO COMPLETE THE [employer] PROCESS WAS UNABLE TO SCAN THE PRODUCT CALLED BACK THE BLOOD BANK AND SPOKE WITH MICHAEL WHO ISSUED THE BLOOD AND HE STATED TO JUST USE THE BLOOD TRANSFUSSION RECORD ON PAPER AT THIS TIME IF UNABLE TO SCAN .
--- NOTE | 2020-04-05 14:15 | NUR ---
BLOOD TRANSFUSSION STARTED ORDERED AND WITHNESSED AND DOCUMENTED ON P[APER WITH NO ADVERSE OR ALLERGIC REACTIONS AT THIS TIME WILL CONTINUE TO OBSERVE PATIENT IS AWARE THAT HE WILL BE DISCHARGED TODAY AFTER THE BLOOD HAS TRANSFUSED AND HE EXPRESSED UNDERSTANDING.
[2020-04-05 15:13] LABS: EOSINOPHILS % (MANUAL) 2 % (0-8); LYMPHOCYTES % (MANUAL) 7 % (20-40); MONOCYTES % (MANUAL) 7 % (2-10); NEUTROPHILS % (MANUAL) 84 % (42-75)
--- NOTE | 2020-04-05 15:40 | NUR ---
CONTINUE ON BLOOD TRANSFUSSION ORDERED WITH NO ADVERSE OR ALLERGIC REACTIONS AT THIS TIME.WILL CONTINUE TO OBSERVE
[2020-04-05 16:00] VITALS: BP 108/72
--- NOTE | 2020-04-05 17:30 | NUR ---
BLOOD TRANSFUSSION COMPLETED ORDERED WITH NO ADVERSE OR ALLERGIC REACTIONS AT THIS TIME.
--- NOTE | 2020-04-05 18:15 | NUR ---
PATIENT DISCHARGED PICKED UP BY THE AMBULANCE SENT BY THE [employer] APPLICATION DEVELOPER IN SATISFACTORY CONDITION WITH DISCHARGE INSTRUCTIONS AND ALL HIS PERSONAL BELONGINGS REPORT WAS GIVEN TO KULDEEP AT THE [facility] FOR CONTINUING CARE INCLUDING CONTINUING IV ATB FOR 7 ,ORE DAYS AND WOUND CARE AND SHE EXPRESSED UNDERSTANDING.
== END 2020-04-05 18:15 | DRG 254 ==
LOC: ER 18:37 → TRANSITION 21:00 → TELE-TD3 03-24 22:31 → TELE3 03-28 20:37
PROVIDERS: ADMIT Nurse Practitioner Acute Care; ATTEND Nurse Practitioner Acute Care
PROC: 30233N1 Transfusion of Nonautologous Red Blood Cells into Peripheral Vein, Percutaneous Approach (ICD-10-PCS; principal; 2020-03-23)
PROC: 06HY33Z Insertion of Infusion Device into Lower Vein, Percutaneous Approach (ICD-10-PCS; 2020-03-24)
PROC: 5A1D70Z Performance of Urinary Filtration, Intermittent, Less than 6 Hours Per Day (ICD-10-PCS; 2020-03-24)
PROC: 0DB78ZX Excision of Stomach, Pylorus, Via Natural or Artificial Opening Endoscopic, Diagnostic (ICD-10-PCS; 2020-03-30)
PROC: 0W3P8ZZ Control Bleeding in Gastrointestinal Tract, Via Natural or Artificial Opening Endoscopic (ICD-10-PCS; 2020-03-30)
PROC: 0JH63XZ Insertion of Tunneled Vascular Access Device into Chest Subcutaneous Tissue and Fascia, Percutaneous Approach (ICD-10-PCS; 2020-04-03)
PROC: B548ZZA Ultrasonography of Superior Vena Cava, Guidance (ICD-10-PCS; 2020-04-03)
PROC: 02HV33Z Insertion of Infusion Device into Superior Vena Cava, Percutaneous Approach (ICD-10-PCS; 2020-04-03)
DX: K63.3 Ulcer of intestine (principal); D62 Acute posthemorrhagic anemia; N17.0 Acute kidney failure with tubular necrosis; R53.2 Functional quadriplegia; I70.248 Atherosclerosis of native arteries of left leg with ulceration of other part of lower leg; L97.821 Non-pressure chronic ulcer of other part of left lower leg limited to breakdown of skin; I70.244 Atherosclerosis of native arteries of left leg with ulceration of heel and midfoot; L97.421 Non-pressure chronic ulcer of left heel and midfoot limited to breakdown of skin; L89.154 Pressure ulcer of sacral region, stage 4; L89.314 Pressure ulcer of right buttock, stage 4; D68.69 Other thrombophilia; E88.09 Other disorders of plasma-protein metabolism, not elsewhere classified; F32.9 Major depressive disorder, single episode, unspecified; F41.9 Anxiety disorder, unspecified; Z87.891 Personal history of nicotine dependence; I42.9 Cardiomyopathy, unspecified; N39.0 Urinary tract infection, site not specified; D72.829 Elevated white blood cell count, unspecified; I25.10 Atherosclerotic heart disease of native coronary artery without angina pectoris; N31.9 Neuromuscular dysfunction of bladder, unspecified; Z68.21 Body mass index [BMI] 21.0-21.9, adult; L97.829 Non-pressure chronic ulcer of other part of left lower leg with unspecified severity; L97.429 Non-pressure chronic ulcer of left heel and midfoot with unspecified severity; I70.234 Atherosclerosis of native arteries of right leg with ulceration of heel and midfoot; L97.419 Non-pressure chronic ulcer of right heel and midfoot with unspecified severity; L85.3 Xerosis cutis; L89.324 Pressure ulcer of left buttock, stage 4; E43 Unspecified severe protein-calorie malnutrition; N13.9 Obstructive and reflux uropathy, unspecified; K57.30 Diverticulosis of large intestine without perforation or abscess without bleeding; K31.7 Polyp of stomach and duodenum; W34.00XS Accidental discharge from unspecified firearms or gun, sequela; Z20.828 Contact with and (suspected) exposure to other viral communicable diseases; Z74.01 Bed confinement status; Z87.11 Personal history of peptic ulcer disease; Z87.440 Personal history of urinary (tract) infections; I12.0 Hypertensive chronic kidney disease with stage 5 chronic kidney disease or end stage renal disease; F15.10 Other stimulant abuse, uncomplicated
CPT/HCPCS: 36415; 70030-TC; 71045; 82378; 83010; 83550; 83605; 83615; 83690; 83735; 84100; 84443; 85018; 85025; 85730; 86140; 86706; 86850; 86900; 86901; 86920; 87040; 87086; 87340; 88313-TC; 88342; 90937; 93005; 93307; A4217; A4649; A4663; C9113; G0378; J0690; J0696; J0885; J1644; J2060; J2270; J2405; J2543; J3010; J3370; J3490; J7030; J7040; J7050; J7060; P9016-BL; P9021